=== PATIENT | female | born 1960 | race Caucasian/White ===

== ENCOUNTER 2019-08-05 08:00 | Inpatient (IN) | payer OTHER ==
[2019-07-27 14:25] VITALS: BMI 31.8
[2019-08-05] MEDS ORDERED: TRANEXAMIC ACID 1000 MG/10 ML VIAL IVPUSH ONE (08:57)
[2019-08-05] MEDS ORDERED: MIDAZOLAM HCL 2 MG/2 ML SINGLE DOSE VIAL ONE ×2 (09:41→13:14)
[2019-08-05] MEDS ORDERED: BUPIVACAINE LIPOSOME/PF (EXPAREL) 266 MG/20 ML VIAL ONE (09:41)
[2019-08-05] MEDS ORDERED: SODIUM CHLORIDE 0.9% P/F 10 ML VIAL IJ ONE (09:41)
[2019-08-05] MEDS ORDERED: SUCCINYLCHOLINE CHLORIDE 200 MG/10 ML SYRINGE ONE ×2 (10:49→13:14)
[2019-08-05] MEDS ORDERED: PROPOFOL 20 ML ONE ×4 (10:49→13:53)
[2019-08-05] MEDS ORDERED: BENZOIN TINCTURE SWABSTICK TP ONE (11:15)
[2019-08-05] MEDS ORDERED: DEXMEDETOMIDINE HCL 200 MCG/2 ML IVPB ONE (11:20)
[2019-08-05] MEDS ORDERED: VANCOMYCIN 1,000 MG in DEXTROSE 5%-WATER - 250 ML IVPB ONE (12:00)
[2019-08-05] MEDS ORDERED: CEFAZOLIN 2 GM in DEXTROSE 5%-WATER - 50 ML IVPB ONE (12:00)
[2019-08-05] MEDS ORDERED: MAGNESIUM HYDROX 2400MG/30ML ORAL SUSPENSION 30 ML CUP PO PRN (14:24)
[2019-08-05] MEDS ORDERED: MAG HYDROX/AL HYDROX/SIMETH 30 ML UNIT-DOSE CUP PO PRN (14:24)
[2019-08-05] MEDS ORDERED: ONDANSETRON 4 MG/2 ML VIAL IVPUSH PRN (14:24)
[2019-08-05] MEDS ORDERED: ACETAMINOPHEN 1000 MG/100 ML VIAL (NON FORMULARY) IVPB ONE (14:28)
[2019-08-05] MEDS ORDERED: LACTATED RINGERS SOLUTION 1,000 ML IV SCH (14:30)
--- NOTE | 2019-08-05 14:34 | OP ---
Operative Note - Note: Operative Date: 08/05/19 Pre-Operative Diagnosis: left knee osteoarthritis Operation: s/p total left knee replacement Surgeon: Epifanio Mcdonald Cage/Vault Supervisor: Ermelinda Amaro Anesthesiologist/HEAVY EQUIPMENT ENGINE MECHANIC: Jose Martin Liz Anesthesia: Spinal Estimated Blood Loss (mls): 50 Fluid Volume Replaced (mls): 1,200 Operative Report Dictated: Yes
[2019-08-05] MEDS ORDERED: SODIUM CHLORIDE 1,000 ML IV SCH (14:45)
--- NOTE | 2019-08-05 15:12 | HP ---
CHIEF COMPLAINT: Left knee osteoarthritis Surgeon: Dr. Epifanio Bates HISTORY OF PRESENT ILLNESS: 58 year-old female with a PMH significant for HTN, HLD, Type II NIDDM, anemia, and left knee osteoarthritis s/p left total knee replacement today with Dr. Epifanio Bates. Recent Travel: [place] March-April 2019 PAST MEDICAL HISTORY: Hypertension Hyperlipidemia Type II NIDDM Osteoarthritis Anemia Anxiety Hearing loss right ear (childhood) Varicose veins PAST SURGICAL HISTORY: Left leg varicose vein surgery 2003 Social History: lives with family Smoking: no Alcohol: no Drugs: no Family history: Father cardiac problems; mother arthritis Allergies No Known Drug Allergies Allergy (Verified 08/05/19 10:04) HOME MEDICATIONS: Home Medications Medication Instructions Recorded Atorvastatin Ca [Lipitor] 40 mg PO HS 07/27/19 Carvedilol 12.5 mg PO BID 07/27/19 Lisinopril/Hydrochlorothiazide 1 each PO DAILY 07/27/19 [Lisinopril-Hctz 20-25 mg Tab] Ferrous Sulfate 325 mg PO DAILY 08/05/19 Metformin HCl [Glucophage] 500 mg PO BID 08/05/19 REVIEW OF SYSTEMS CONSTITUTIONAL: Absent: fever, chills, diaphoresis, generalized weakness, malaise, loss of appetite, weight change HEENT: Absent: rhinorrhea, nasal congestion, throat pain, throat swelling, difficulty swallowing, mouth swelling, ear pain, eye pain, visual changes CARDIOVASCULAR: Absent: chest pain, syncope, palpitations, irregular heart rate, lightheadedness , peripheral edema RESPIRATORY: Absent: cough, shortness of breath, dyspnea with exertion, orthopnea, wheezing, stridor, hemoptysis GASTROINTESTINAL: Absent: abdominal pain, abdominal distension, nausea, vomiting, diarrhea, constipation, melena, hematochezia GENITOURINARY: Absent: dysuria, frequency, urgency, hesitancy, hematuria, flank pain, genital pain MUSCULOSKELETAL: Absent: myalgia, arthralgia, joint swelling, back pain, neck pain SKIN: Absent: rash, itching, pallor HEMATOLOGIC/IMMUNOLOGIC: Absent: easy bleeding, easy bruising, lymphadenopathy, frequent infections ENDOCRINE: Absent: unexplained weight gain, unexplained weight loss, heat intolerance, cold intolerance NEUROLOGIC: Absent: headache, focal weakness or paresthesias, dizziness, unsteady gait, seizure, mental status changes, bladder or bowel incontinence PSYCHIATRIC: Absent: anxiety, depression, suicidal or homicidal ideation, hallucinations. PHYSICAL EXAMINATION Vital Signs - 24 hr 08/05/19 08/05/19 09:48 09:53 Temperature 98.3 F Pulse Rate 85 Respiratory 18 Rate Blood Pressure 129/74 O2 Sat by Pulse 97 Oximetry (%) GENERAL: Awake, alert, and fully oriented, in mild distress secondary to pain. HEAD: Normal with no signs of trauma. EYES: Pupils equal, round and reactive to light, extraocular movements intact, sclera anicteric, conjunctiva clear. No lid lag. LUNGS: Anterior breath sounds equal, clear to auscultation bilaterally. No accessory muscle use. HEART: Regular rate and rhythm, normal S1 and S2 ABDOMEN: Soft, nontender, not distended UPPER EXTREMITIES: 2+ pulses, warm, well-perfused. No cyanosis. No clubbing. No peripheral edema. LEFT LOWER EXTREMITY: 2+ DP pulse, warm, well-perfused. No calf tenderness. No peripheral edema. Leg immobilizer, ice pack; surgical dressings c/d/i; surgical wound not visualized NEUROLOGICAL: Cranial nerves II-XII intact. Normal speech. Laboratory Results - last 24 hr 08/05/19 10:06 POC Glucometer 108 Pre op Hgb 12.9 BUN 19 Cr 0.6 Intra op Vanco x 1 g Ancef x 2g Fluids LR 1,200mL ASSESSMENT/PLAN: 58 year-old female with a PMH significant for HTN, HLD, Type II NIDDM, anemia, and left knee osteoarthritis s/p left total knee replacement today with Dr. Epifanio Bates. Left toal knee replacement --POD #0 --perioperative antibiotics per surgery --pain management per surgery --ASA 81mg BID --protonix --bowel regimen --incentive spirometry --Hemovac drain, monitor output --monitor UOP, if no UOP in [address] DENEEN BATES before intervention Hypertension --hypotensive post-op, receiving IV fluids --hold this evening's dose of carvedilol, reassess resuming carvedilol, lisinopril, HCTZ in am Hyperlipidemia --continue atorvastatin Type II NIDDM --continue metformin --Novolog sliding scale coverage Iron-deficiency anemia --continue ferrous sulfate FEN Fluids: NS@125mL/hr Electrolytes: replete as indicated Nutrition: diabetic, low sodium DVT prophylaxis: OOB, ambulation, SCDs, TEDs, ASA 81mg BID Physical therapy Dispo: continues to require inpatient care. Full code. Visit type - Emergency Visit Emergency Visit: No - New Patient This patient is new to me today: Yes Date on this admission: 08/05/19 - Critical Care Critical Care patient: No
[2019-08-05] MEDS ORDERED: ACETAMINOPHEN 325 MG TABLET (FP) PO SCH (15:15)
[2019-08-05] MEDS: oxyCODONE HCL 5 MG TABLET PO PRN (17:09)
[2019-08-05] MEDS ORDERED: HYDROmorphone HCL CARPU-JECT 1 MG/1 ML DISP.SYRIN IVPUSH PRN (18:26)
--- NOTE | 2019-08-05 18:44 | SURG ---
Surgery Carpentry Supervisor Note Carpentry Supervisor: Ermelinda Amaro PA-C Date of Service: 08/05/19 Diagnosis: left knee osteoarthritis Procedure: s/p total left knee replacement I was present for the entirety of the operative procedure. For further detail, please refer to operative report. Visit type - Case Type Case Type: Scheduled - Emergency Emergency Visit: No - New patient This patient is new to me today: Yes Date on this admission: 08/05/19
[2019-08-05] MEDS ORDERED: HYDROmorphone HCl 2 MG/ML VIAL IVPB PRN (19:06)
[2019-08-05] MEDS ORDERED: CEFAZOLIN 1 GM/D5W 1 GM/50 ML BAG IVPB SCH (21:00)
[2019-08-05] MEDS: oxyCODONE HCL 10 MG SUSTAINED ACTING TABLET PO SCH (21:27)
[2019-08-05] MEDS: ATORVASTATIN CA 40 MG TABLET (FP) PO SCH (21:28)
[2019-08-05] MEDS: ACETAMINOPHEN 500 MG TABLET (FP) PO SCH (21:28)
[2019-08-05] MEDS: ASPIRIN 81 MG CHEWABLE TABLETS PO SCH (21:28)
[2019-08-05] MEDS: SENNOSIDES/DOCUSATE COMBO (SENNA PLUS) TABLET (UD) PO SCH (21:28)
[2019-08-05] MEDS ORDERED: CARVEDILOL 12.5 MG TABLET (FP) PO SCH (22:00)
[2019-08-05] MEDS: INSULIN SLIDING SCALE (NOVOLOG) 1 VIAL SQ SCH (22:07)
[2019-08-05] MEDS: CEFAZOLIN 1 GM/D5W 1 GM/50 ML BAG IVPB SCH (22:12)
[2019-08-06] MEDS: oxyCODONE HCL 5 MG TABLET PO PRN ×4 (01:45→23:06)
[2019-08-06] MEDS: ACETAMINOPHEN 500 MG TABLET (FP) PO SCH ×2 (02:16→09:20)
[2019-08-06] MEDS: CEFAZOLIN 1 GM/D5W 1 GM/50 ML BAG IVPB SCH (06:44)
[2019-08-06] MEDS: INSULIN SLIDING SCALE (NOVOLOG) 1 VIAL SQ SCH ×4 (06:49→22:10)
[2019-08-06] MEDS: metFORMIN HCL 500 MG TABLET (FP) PO SCH ×2 (06:49→15:58)
--- NOTE | 2019-08-06 07:45 | PN ---
Progress Note (short form) - Note Progress Note: Surgery POD #1 Left TKA patient seen and examined at bedside with no complaints. She had some pain last night which was addressed with an adjustment in her pain meds and she was able to sleep. She is tolerating her diet and denies any CP,SOB , N/V, fever or chills. Vital Signs Temp 98.2 F 08/06/19 05:00 Pulse 83 08/06/19 05:00 Resp 18 08/06/19 05:00 BP 113/59 L 08/06/19 05:00 Pulse Ox 97 08/06/19 05:00 Intake & Output 08/05/19 08/05/19 08/06/19 11:59 23:59 11:59 Intake Total 1200 550 Output Total 510 40 Balance 1200 40 -40 Weight 216 lb Intake: IV 1200 150 Oral 400 Output: Drainage 10 40 Left Knee 10 40 Urine 500 Void 500 Other: Voiding Method Bedpan Height 5 ft 9 in Body Mass Index (BMI) 31.8 Weight Measurement Method Standing Scale CBC, BMP 08/06/19 07:28 08/06/19 07:28 PE: A&Ox3, NAD Unlabored resp on RA Left knee dressing c/d/i with no evidence of active bleeding, hemavac drain in good position and draining bloody d/c. LE compartments soft, supple with mild edema and TTP of left LE appropriate to status. 5/5 dorsi/plantar flexion with + 2 DP pulses. Problem List - Problems (1) Osteoarthrosis of knee Assessment/Plan: POD#1 patient doing well. -OOB with PT, WBAT with assist -DVT prophylaxis with b/l teds, scds and Aspirin 81mg BIDx 6 wks -Encourage daily IS -empty and measure drain -rolled towel under ankle at all times -pain control -D/c planning for tomorrow vs Saturday Code(s): M17.10 - UNILATERAL PRIMARY OSTEOARTHRITIS, UNSPECIFIED KNEE
[2019-08-06 07:54] LABS: HEMATOCRIT 31.4 % (32.4-45.2); HEMOGLOBIN 10.8 GM/dl (10.7-15.3); MCH 31.5 pg (25.7-33.7); MCHC 34.3 g/dl (32.0-36.0); MEAN CELL VOLUME 91.9 fl (80-96); MEAN PLT VOLUME 8.5 fl (7.5-11.1); PLATELET COUNT 269 K/MM3 (134-434); RBC 3.41 M/mm3 (3.60-5.2); RDW 11.8 % (11.6-15.6); WHITE BLOOD COUNT 8.2 K/mm3 (4.0-10.8)
[2019-08-06 07:59] LABS: CALCIUM 8.8 mg/dl (8.5-10); CREATININE 0.6 mg/dl (0.55-1.3); POTASSIUM 4.1 mmol/L (3.5-5.1)
--- NOTE | 2019-08-06 09:12 | PN ---
Physical Exam: SUBJECTIVE: Patient seen and examined oob to chair. Participated in PT this morning, did well, "I'm proud of myself!" No pain at present. OBJECTIVE: Vital Signs Period Temp Pulse Resp BP Sys/Zimmer Pulse Ox Last 24 Hr 97.5 F-98.3 F 65-88 14-23 99-129/51-74 97-100 GENERAL: Awake, alert, and fully oriented, in mild distress secondary to pain. LUNGS: Anterior breath sounds equal, clear to auscultation bilaterally. No accessory muscle use. HEART: Regular rate and rhythm, normal S1 and S2 ABDOMEN: Soft, nontender, not distended UPPER EXTREMITIES: 2+ pulses, warm, well-perfused. No cyanosis. No clubbing. No peripheral edema. LEFT LOWER EXTREMITY: 2+ DP pulse, warm, well-perfused. No calf tenderness. No peripheral edema. Leg immobilizer, ice pack; surgical dressings c/d/i; surgical wound not visualized NEUROLOGICAL: Cranial nerves II-XII intact. Normal speech. Laboratory Results - last 24 hr 08/05/19 08/05/19 08/05/19 10:06 10:06 10:06 WBC RBC Hgb Hct MCV MCH MCHC RDW Plt Count MPV Sodium Potassium Chloride Carbon Dioxide Anion Gap BUN Creatinine Est GFR (CKD-EPI)AfAm Est GFR (CKD-EPI)NonAf POC Glucometer 108 Random Glucose Calcium Hep C Ab Diagnostic <0.1 HIV 1&2 Antibody Screen Negative HIV P24 Antigen Negative 08/05/19 08/06/19 08/06/19 22:03 06:48 07:28 WBC 8.2 RBC 3.41 L Hgb 10.8 Hct 31.4 L MCV 91.9 MCH 31.5 MCHC 34.3 RDW 11.8 Plt Count 269 MPV 8.5 Sodium Potassium Chloride Carbon Dioxide Anion Gap BUN Creatinine Est GFR (CKD-EPI)AfAm Est GFR (CKD-EPI)NonAf POC Glucometer 134 134 Random Glucose Calcium Hep C Ab Diagnostic HIV 1&2 Antibody Screen HIV P24 Antigen 08/06/19 07:28 WBC RBC Hgb Hct MCV MCH MCHC RDW Plt Count MPV Sodium 135 L Potassium 4.1 Chloride 99 Carbon Dioxide 26 Anion Gap 10 BUN 13.0 Creatinine 0.6 Est GFR (CKD-EPI)AfAm 114.82 Est GFR (CKD-EPI)NonAf 99.07 POC Glucometer Random Glucose 148 H Calcium 8.8 Hep C Ab Diagnostic HIV 1&2 Antibody Screen HIV P24 Antigen Active Medications Generic Name Dose Route Start Last Admin Trade Name Eleuterioq PRN Reason Stop Dose Admin Al Hydroxide/Mg Hydroxide 30 ml 08/05/19 14:24 Mylanta Oral Suspension - PO Q4H PRN DYSPEPSIA Aspirin 81 mg 08/05/19 22:00 08/05/19 21:28 Asa - PO 81 mg BID [facility] Administration Atorvastatin Calcium 40 mg 08/05/19 22:00 08/05/19 21:28 Lipitor - PO 40 mg HS [facility], [facility]1983 Administration Carvedilol 12.5 mg 08/06/19 10:00 Coreg - PO BID [facility], [facility]1983 Ferrous Sulfate 325 mg 08/06/19 10:00 Feosol - PO DAILY [facility] Hydrochlorothiazide 25 mg 08/06/19 10:00 Hctz - PO DAILY [facility]1983 Hydromorphone HCl 1 mg 08/05/19 19:06 Dilaudid Vial - IVPB Q6H PRN PAIN LEVEL 6-10 Sodium Chloride 1,000 mls @ 125 mls/hr 08/05/19 14:45 08/05/19 15:30 Normal Saline - IV 0 mls ASDIR [facility], [facility]1983 Administration Insulin Aspart 1 vial 08/05/19 22:00 08/06/19 06:49 Novolog Vial Sliding Scale - SQ Not Given ACHS [facility], [facility]1983 Protocol Lisinopril 20 mg 08/06/19 10:00 Prinivil PO DAILY [facility] Magnesium Hydroxide 30 ml 08/05/19 14:24 Milk Of Magnesia - PO PRN PRN CONSTIPATION Metformin HCl 500 mg 08/06/19 07:00 08/06/19 06:49 Glucophage - PO 500 mg BIDI [facility]1983 Administration Multivitamins/Minerals/Vitamin C 1 tab 08/06/19 10:00 Tab-A-Vit - PO DAILY [facility] Ondansetron HCl 4 mg 08/05/19 14:24 Zofran Injection IVPUSH Q6H PRN NAUSEA Oxycodone HCl 5 mg 08/05/19 15:10 Roxicodone - PO Q3H PRN PAIN LEVEL 1-5 Oxycodone HCl 10 mg 08/05/19 15:10 08/06/19 06:44 Roxicodone - PO 10 mg Q3H PRN Administration PAIN LEVEL 6-10 Oxycodone HCl 10 mg 08/05/19 22:00 08/05/19 21:27 Oxycontin - PO 08/08/19 15:11 10 mg BID LORENZA Administration Pantoprazole Sodium 40 mg 08/06/19 10:00 Protonix - PO DAILY LORENZA Senna/Docusate Sodium 2 tablet 08/05/19 22:00 08/05/19 21:28 Pericolace - PO 2 tablet BID LORENZA Administration ASSESSMENT/PLAN: 58 year-old female with a PMH significant for HTN, HLD, Type II NIDDM, anemia, and left knee osteoarthritis s/p left total knee replacement today with Dr. Epifanio Mcdonald. Left toal knee replacement --POD #1 --perioperative antibiotics per surgery --pain management per surgery --ASA 81mg BID --protonix --bowel regimen --incentive spirometry --Hemovac drain, monitor output --monitor UOP Hypertension --continue carvedilol, lisinopril, HCTZ Hyperlipidemia --continue atorvastatin Type II NIDDM --continue metformin --Novolog sliding scale coverage Iron-deficiency anemia --continue ferrous sulfate FEN Fluids: PO intake adequate Electrolytes: replete as indicated Nutrition: diabetic, low sodium DVT prophylaxis: OOB, ambulation, SCDs, TEDs, ASA 81mg BID Physical therapy Dispo: continues to require inpatient care. Full code. Visit type - Emergency Visit Emergency Visit: No - New Patient This patient is new to me today: No - Critical Care Critical Care patient: No
[2019-08-06] MEDS: MULTIVITAMINS (DAILY MVI) TABLET (FP) PO SCH (09:17)
[2019-08-06] MEDS: PANTOPRAZOLE 40 MG TABLET (FP) PO SCH (09:17)
[2019-08-06] MEDS: LISINOPRIL 20 MG TABLET (FP) PO SCH (09:18)
[2019-08-06] MEDS: HYDROCHLOROTHIAZIDE 25 MG TABLET (FP) PO SCH (09:18)
[2019-08-06] MEDS: SENNOSIDES/DOCUSATE COMBO (SENNA PLUS) TABLET (UD) PO SCH ×2 (09:18→21:18)
[2019-08-06] MEDS: FERROUS SO4 325 MG TABLET (FP) PO SCH (09:19)
[2019-08-06] MEDS: ASPIRIN 81 MG CHEWABLE TABLETS PO SCH ×2 (09:19→21:18)
[2019-08-06] MEDS: CARVEDILOL 12.5 MG TABLET (FP) PO SCH ×2 (09:19→21:18)
[2019-08-06] MEDS ORDERED: PATIENT'S OWN MEDICATION (NON-FORMULARY) (Lisinopril/Hydrochlorothiazide [Lisinopril-Hctz PO SCH (10:00)
--- NOTE | 2019-08-06 11:10 | PN ---
Progress Note (short form) - Note Progress Note: 58F POD#1 for R TKR under spinal anesthesia with adductor canal/selective tibial nerve block. Pt. participating in physical therapy this am and doing well. No anesthesia related complications. Pain adequately controlled. Continue management per primary team.
--- NOTE | 2019-08-06 12:55 | OP ---
DATE OF OPERATION: DATE OF DICTATION: 08/05/2019 SURGEON: Epifanio Mcdonald MD FLY RAIL OPERATOR: MARY Palma PREOPERATIVE DIAGNOSIS: Tricompartment osteoarthritis knee with fixed flexion deformity and fixed varus deformity, left knee. POSTOPERATIVE DIAGNOSIS: Tricompartment osteoarthritis knee with fixed flexion deformity and fixed varus deformity, left knee. OPERATION PERFORMED: Left posterior stabilized cemented total knee arthroplasty (Trevor). ANESTHESIA: Conscious sedation with spinal anesthesia and peripheral nerve block. ANTIBIOTICS GIVEN: 2 g Kefzol, 1 g Kefzol given at the end of the procedure. OPERATION DETAILS: Patient correctly identified, brought to the operating room. Left lower extremity was prepped, draped in the routine manner with Betadine scrub solution, wiped off with alcohol, DuraPrep applied. A midline incision was utilized. It took us down to subcutaneous fat. The epimysium of the vastus medialis was dissected off the actual muscle belly itself. A tibial cut was made alongside the medial tibial tubercle and then curved backwards along parallel to the border of the vastus medialis to raise a cuff of the retinaculum and extend it all the way to this linea aspera to free the entire vastus and associated patellar mechanism. A blunt Homans was placed just above the suprapatellar pouch in the space between the femur and the entire vastus musculature. The suprapatellar pouch was then opened and the soft tissue on the anterior surface of the distal femur resected. Using the [employer] instrumentation, the tibial cut was made neutral to receive a size 5 tibial tray. The jig cuts were made. The appropriate broaches were utilized, and the ultimate implant had a stubby added to the distal tip. This gave extra fixation in the actual bone bed itself. The femoral jigs were seated, and the cut was made 3 degrees of external rotation, 2 mm of joint line was resected to proximalize the joint line by 2 mm to accommodate the flexion deformity. The flexion extension gaps were even at 13 mm. The femoral component measured size 4, and the flexion extension gaps were even. Once we were happy with the seating of the trial components, full extension, complete stability and flexion as well as extension, and the tension of the medial collateral in flexion assessed appropriately. The components were all cemented into position as follows. Pulsatile lavage was applied to the bone. Cementing was in 1 stage from tibia, femur then patella. All extraneous cement was removed. The knee was reduced back into position. Patella tracking was excellent even with no suturing of the retinaculum and a negative thumb's test noted. Range of movement was 0- 120 degrees and completely stable. Closure; retinacular tissue with 1 Vicryl, subcutaneous 1 and 2-0 Vicryl, skin 3-0 Monocryl with Steri-Strips. Drainage 1/ 8 inch Hemovac brought out superolaterally but draining the subvastus bed. No complications. Operation did well. Just before the release of the tourniquet, another gram of Ancef was given. MD MAHAD Garcia/[id number] MTDD
[2019-08-06] MEDS: oxyCODONE HCL 10 MG SUSTAINED ACTING TABLET PO SCH (14:48)
[2019-08-06] MEDS: ATORVASTATIN CA 40 MG TABLET (FP) PO SCH (21:18)
[2019-08-07] MEDS: oxyCODONE HCL 5 MG TABLET PO PRN (02:14)
[2019-08-07 02:23] VITALS: BP 98/43; PULSE 94; TEMP 100.2
[2019-08-07] MEDS: INSULIN SLIDING SCALE (NOVOLOG) 1 VIAL SQ SCH ×2 (06:36→12:11)
[2019-08-07] MEDS: metFORMIN HCL 500 MG TABLET (FP) PO SCH (06:36)
[2019-08-07 08:08] LABS: HEMATOCRIT 29.3 % (32.4-45.2); HEMOGLOBIN 9.9 GM/dl (10.7-15.3); MCH 30.9 pg (25.7-33.7); MCHC 33.7 g/dl (32.0-36.0); MEAN CELL VOLUME 91.7 fl (80-96); MEAN PLT VOLUME 8.5 fl (7.5-11.1); PLATELET COUNT 267 K/MM3 (134-434); RDW 11.8 % (11.6-15.6); WHITE BLOOD COUNT 11.2 K/mm3 (4.0-10.8)
--- NOTE | 2019-08-07 08:43 | PN ---
Progress Note (short form) - Note Progress Note: Surgery POD #2 Left TKA patient seen and examined at bedside with no complaints. Patient states her pain is controlled. She has been ambulating with PT and tolerating her diet and denies any CP,SOB, N/V, fever or chills. Vital Signs Temp 100.2 F H 08/07/19 02:00 Pulse 94 H 08/07/19 02:00 Resp 18 08/07/19 02:00 BP 98/43 L 08/07/19 02:00 Pulse Ox 96 08/07/19 02:00 Intake & Output 08/06/19 08/06/19 08/07/19 11:59 23:59 11:59 Intake Total 950 1100 Output Total 40 180 10 Balance 910 920 -10 Intake: IV 500 Lactated Ringers Solution 500 1,000 ml @ 125 mls/hr IV ASDIR LORENZA Rx#: [id number] IVPB 100 Oral 350 1100 Output: Drainage 40 180 10 Left Knee 40 180 10 Other: Voiding Method Toilet Toilet # Unmeasured Voids Void 3 4 1 CBC, BMP 08/07/19 07:21 08/06/19 07:28 PE: A&Ox3, NAD Unlabored resp on RA Left knee incision c/d/i with no evidence of active bleeding, hemavac removed with tip fully intact. LE compartments soft, supple with mild edema and TTP of left LE appropriate to status. 5/5 dorsi/plantar flexion with +2 DP pulses. Problem List - Problems (1) Osteoarthrosis of knee Assessment/Plan: POD#2 patient doing well. -OOB with PT, WBAT with assist -DVT prophylaxis with b/l teds, scds and Aspirin 81mg BIDx 6 wks -Encourage daily IS -rolled towel under ankle at all times -pain control -D/c planning for home today after second PT evaluation. Evaluation and plan discussed with Dr Mcdonald. Code(s): M17.10 - UNILATERAL PRIMARY OSTEOARTHRITIS, UNSPECIFIED KNEE
[2019-08-07] MEDS: ASPIRIN 81 MG CHEWABLE TABLETS PO SCH (09:04)
[2019-08-07] MEDS: FERROUS SO4 325 MG TABLET (FP) PO SCH (09:05)
[2019-08-07] MEDS: CARVEDILOL 12.5 MG TABLET (FP) PO SCH (09:05)
[2019-08-07] MEDS: SENNOSIDES/DOCUSATE COMBO (SENNA PLUS) TABLET (UD) PO SCH (09:06)
[2019-08-07] MEDS: LISINOPRIL 20 MG TABLET (FP) PO SCH (09:06)
[2019-08-07] MEDS: PANTOPRAZOLE 40 MG TABLET (FP) PO SCH (09:10)
[2019-08-07] MEDS: MULTIVITAMINS (DAILY MVI) TABLET (FP) PO SCH (09:50)
[2019-08-07] MEDS ORDERED: FOLIC ACID 1 MG TABLET (FP) PO SCH (10:00)
[2019-08-07] MEDS: HYDROCHLOROTHIAZIDE 25 MG TABLET (FP) PO SCH (10:06)
--- NOTE | 2019-08-12 12:49 | PATH ---
Surgical Pathology Report Patient Name: JENNY CARBALLO Med. Rec. #: [id number] /Age/Gender: 1960 (Age: 58) / F Account: [id number] Location: [facility] MED-SURG Taken: 08/05/2019 Received: 08/05/2019 Reported: 08/12/2019 Physicians: Epifanio Mcdonald M.D. Specimen(s) Received BONES LEFT KNEE Clinical History Osteoarthritis left knee Final Diagnosis BONES, LEFT KNEE, TOTAL KNEE REPLACEMENT: DEGENERATIVE JOINT DISEASE. Electronically Signed [place]ina [place] M.D. Gross Description Received in formalin labeled "bones left knee," is an 11.0 x 9.5 x 2.5 cm aggregate of multiple portions of bone and soft tissue. The tibial plateau measures 7.4 x 5.4 x 1.7 cm. There are multiple areas of eburnation present, measuring up to 3.5 cm in greatest dimension. The remaining articular surfaces are orozco and diffusely granular. The underlying trabecular bone is yellow and hard. Line Installer Trolley sections are submitted in one cassette, following decalcification. 08/06/2019 [facility]08/06/2019
== END 2019-08-07 13:40 | disposition home or self-care (01) | DRG 470 ==
LOC: FM/S 09:06
PROVIDERS: ADMIT Orthopaedic Surgery Orthopaedic Surgery of the Spine; ATTEND Nurse Practitioner Acute Care
PROC: 0SRD0J9 Replacement of Left Knee Joint with Synthetic Substitute, Cemented, Open Approach (ICD-10-PCS; principal; 2019-08-05 12:28)
DX: M17.12 Unilateral primary osteoarthritis, left knee (principal); I10 Essential (primary) hypertension; E78.5 Hyperlipidemia, unspecified; E11.9 Type 2 diabetes mellitus without complications; F41.9 Anxiety disorder, unspecified; D64.9 Anemia, unspecified; H91.91 Unspecified hearing loss, right ear; D50.0 Iron deficiency anemia secondary to blood loss (chronic)
CPT/HCPCS: 36415; 73560-TC-LT-FY; 80048; 82962; 85027; 86803; 87389; 88304-TC; 88311-TC; 94760; 97116-GP; 97163-GP; J0131; J7030